=== PATIENT | male | born 1960 | race African-American/Black ===

== ENCOUNTER 2021-02-20 05:33 | Emergency (ER) | payer OTHER ==
[~2021-02-20] VITALS: Ht 177.8 cm; Wt 81.6 kg
[2021-02-20 05:40] VITALS: BP 176/125
[2021-02-20 07:03] VITALS: BP 168/109
--- NOTE | 2021-02-20 07:04 | NUR ---
Patient discharged with v/s stable. Written and verbal after care instructions given and explained. Patient verbalized understanding. Ambulatory with steady gait. All questions addressed prior to discharge. Advised to follow up with PMD.
== END 2021-02-20 07:04 | disposition home or self-care (01) ==
LOC: MED 05:33
DX: I86.8 Varicose veins of other specified sites (principal); Z20.822 Contact with and (suspected) exposure to COVID-19; I10 Essential (primary) hypertension
CPT/HCPCS: 90471; 90715; 99283